=== PATIENT | male | born 1960 | race Caucasian/White ===

== ENCOUNTER 2018-02-24 05:50 | Emergency (ER) | payer MEDICAID, OTHER ==
[~2018-02-24] VITALS: Ht 185.4 cm; Wt 79.5 kg
[2018-02-24] MEDS ORDERED: CEPH500C5 PO (06:31)
[2018-02-24] MEDS ORDERED: HYDR-3965 PO (06:31)
[2018-02-24] MEDS ORDERED: ceFAZolin 1gm IM kit IM ONE (06:35)
[2018-02-24] MEDS ORDERED: HYDROcodone/acetaminophen 10/325mg tab PO ONE (06:35)
[2018-02-24] MEDS ORDERED: gentamicin 0.1% topical ointment 15gm TP SCH (06:45)
[2018-02-24 07:25] VITALS: BP 115/71
== END 2018-02-24 07:25 | disposition home or self-care (01) ==
LOC: ER 05:51
DX: L03.116 Cellulitis of left lower limb (principal); F17.200 Nicotine dependence, unspecified, uncomplicated; Z98.890 Other specified postprocedural states; Z88.2 Allergy status to sulfonamides; Z79.2 Long term (current) use of antibiotics; W57.XXXA Bitten or stung by nonvenomous insect and other nonvenomous arthropods, initial encounter; Y93.89 Activity, other specified; Y92.89 Other specified places as the place of occurrence of the external cause; Y99.8 Other external cause status
CPT/HCPCS: 87070; 87077; 87186; 96372; 99284; J0690

== ENCOUNTER 2018-02-25 12:51 | Inpatient (IN) | payer MEDICAID, OTHER ==
[~2018-02-25] VITALS: Ht 185.4 cm; Wt 75.0 kg
[~2018-02-25 12:51] MED LIST: CEPH500C5 PO; HYDR-3965 PO
[2018-02-25] MEDS ORDERED: gentamicin 40 MG/1 ML inj IV STA (13:18)
[2018-02-25] MEDS ORDERED: normal saline 1000ML IV soln IVB ONE (13:20)
[2018-02-25] MEDS ORDERED: probenecid 500mg tablet PO ONE (13:20)
[2018-02-25] MEDS ORDERED: morphine 4 MG/ML inj SYRINge IV ONE ×2 (13:20→14:35)
[2018-02-25] MEDS ORDERED: ondansetron/PF 4mg/2ml inj IV ONE (13:20)
[2018-02-25] MEDS ORDERED: LIDOcaine 1.5% w/epinephrine 1:200,000 5ml ampul IJ ONE (13:20)
[2018-02-25 13:39] LABS: BASOPHILS % (AUTO) 0 % (0-1); EOSINOPHILS # (AUTO) 0.1 X10'3 (0-0.9); EOSINOPHILS % (AUTO) 0.2 % (0-6); HEMOGLOBIN 14.2 g/dl (14.0-17.9); LYMPHOCYTES # (AUTO) 1.1 X10'3 (1.1-4.8); LYMPHOCYTES % (AUTO) 3.5 % (21-51); MEAN CORPUSCULAR HEMOGLOBIN 32.4 PG (27.0-31.0); MEAN CORPUSCULAR HGB CONC 33.9 % (33.0-36.5); MEAN CORPUSCULAR VOLUME 95.7 FL (78-98); MEAN PLATELET VOLUME 8.4 FL (7.4-10.4); MONOCYTES # (AUTO) 1.4 X10'3 (0-0.9); MONOCYTES % (AUTO) 4.4 % (2-12); NEUTROPHILS # (AUTO) 29.3 X10'3 (1.8-7.7); NEUTROPHILS % (AUTO) 91.9 % (42-75); PLATELET COUNT 282 X10'3 (140-440); RED BLOOD COUNT 4.39 X10'6 (4.70-6.10); RED CELL DISTRIBUTION WIDTH 12.9 % (11.5-14.5)
[2018-02-25] MEDS ORDERED: GENTAMICIN IV ONE (13:45)
[2018-02-25] MEDS ORDERED: NORMAL SALINE IV ONE (13:45)
[2018-02-25 13:51] LABS: WHITE BLOOD COUNT 31.9 X10'3 (4.5-11.0)
[2018-02-25 13:53] LABS: ALANINE AMINOTRANSFERASE 49 U/L (12-78); ALBUMIN 3.2 G/DL (3.4-5.0); ALBUMIN/GLOBULIN RATIO 0.9 (1.1-1.5); ALKALINE PHOSPHATASE 83 IU/L (46-116); ANION GAP 8 (8-16); ASPARTATE AMINO TRANSFERASE 30 U/L (10-37); BILIRUBIN,TOTAL 0.7 MG/DL (0.1-1.0); BLOOD UREA NITROGEN 17 MG/DL (7-18); BUN/CREATININE RATIO 15.7 (5.4-32.0); CALCIUM 8.8 MG/DL (8.5-10.1); CHLORIDE 99 MMOL/L (99-107); CREATININE 1.08 MG/DL (0.60-1.10); GLUCOSE 127 MG/DL (70-104); POTASSIUM 4.2 MMOL/L (3.5-5.1); SODIUM 135 MMOL/L (135-145); TOTAL CARBON DIOXIDE 27.8 MMOL/L (24-32); TOTAL PROTEIN 6.9 G/DL (6.4-8.2); eGFR 70 ML/MIN
[2018-02-25] MEDS ORDERED: normal saline 1000ML IV soln IV ONE (13:55)
[2018-02-25 13:59] LABS: PLATELET ESTIMATE NORMAL; TOTAL CELLS COUNTED 100
[2018-02-25] MEDS ORDERED: ampicillin/sulbac 3gm/NS 100ml 100 ML IV SCH (14:00)
[2018-02-25] MEDS ORDERED: ampicillin/sulbac 3gm/NS 100ml 100 ML IV ONE (14:00)
[2018-02-25 14:13] LABS: INR 1.1 INR; PARTIAL THROMBOPLASTIN TIME 33 SECONDS (22-32)
[2018-02-25] MEDS ORDERED: iohexol 300mg/ml 100ml inj. ONE (14:31)
[2018-02-25] MEDS ORDERED: morphine 2 MG/ML inj. syringe IV PRN (15:35)
[2018-02-25] MEDS ORDERED: magnesium Cl slow-release 64mg tablet PO PRN (15:35)
[2018-02-25] MEDS ORDERED: magnesium 4gm in 100ml NS 100 ML IV PRN (15:35)
[2018-02-25] MEDS ORDERED: ondansetron/PF 4mg/2ml inj IV PRN (15:35)
[2018-02-25] MEDS ORDERED: acetaminophen 325mg tablet PO PRN ×2 (15:35)
[2018-02-25] MEDS ORDERED: magnesium 1gm/100ml D5W IVPB 100 ML IV PRN (15:35)
[2018-02-25] MEDS ORDERED: mag hydrox/Alum hydrox/simeth 30ml oral suspension PO PRN (15:35)
[2018-02-25] MEDS ORDERED: magnesium hydroxide 30ml (MOM) UD suspension PO PRN (15:35)
[2018-02-25] MEDS ORDERED: potassium Cl 40MEQ/NS 500ml 500 ML IV PRN ×2 (15:35)
[2018-02-25] MEDS ORDERED: potassium Cl 20 mEq SR tablet PO PRN ×2 (15:35)
[2018-02-25] MEDS: morphine 2 MG/ML inj. syringe IV PRN ×2 (15:50→20:06)
[2018-02-25] MEDS ORDERED: gentamicin in saline, iso-osm 80 MG/50 ML premix IV SCH (16:00)
[2018-02-25 17:16] VITALS: BP 130/92
[2018-02-25] MEDS: oxyCODONE/APAP 5-325mg tablet PO PRN ×2 (17:52→23:53)
[2018-02-25] MEDS: potassium Cl 20mEq in NS 1,000 ML IV SCH (17:53)
[2018-02-25 18:00] VITALS: BP_SYST 108; BP_SYST 167; BP_DIAS 69; BP_DIAS 75
[2018-02-25] MEDS: ampicillin/sulbac 3gm/NS 100ml 100 ML IV SCH (20:00)
[2018-02-25 22:00] VITALS: BP 103/60
[2018-02-25] MEDS: gentamicin inj 80 MG in normal saline 100ml IV soln 100 ML IV SCH (23:53)
[2018-02-26] MEDS: potassium Cl 20mEq in NS 1,000 ML IV SCH ×3 (01:32→22:46)
[2018-02-26 02:00] VITALS: BP 104/61
[2018-02-26] MEDS: ampicillin/sulbac 3gm/NS 100ml 100 ML IV SCH ×2 (02:32→08:42)
[2018-02-26] MEDS: morphine 2 MG/ML inj. syringe IV PRN ×4 (02:39→18:03)
[2018-02-26 06:00] VITALS: BP 99/57
[2018-02-26 06:14] LABS: BASOPHILS % (AUTO) 0 % (0-1); EOSINOPHILS # (AUTO) 0.4 X10'3 (0-0.9); EOSINOPHILS % (AUTO) 1.8 % (0-6); HEMATOCRIT 33.4 % (42.0-52.0); HEMOGLOBIN 11.3 g/dl (14.0-17.9); LYMPHOCYTES # (AUTO) 1.2 X10'3 (1.1-4.8); LYMPHOCYTES % (AUTO) 6.4 % (21-51); MEAN CORPUSCULAR HEMOGLOBIN 32.6 PG (27.0-31.0); MEAN CORPUSCULAR HGB CONC 33.9 % (33.0-36.5); MEAN CORPUSCULAR VOLUME 96.2 FL (78-98); MEAN PLATELET VOLUME 8.5 FL (7.4-10.4); MONOCYTES # (AUTO) 1.2 X10'3 (0-0.9); MONOCYTES % (AUTO) 6.1 % (2-12); NEUTROPHILS # (AUTO) 16.6 X10'3 (1.8-7.7); NEUTROPHILS % (AUTO) 85.7 % (42-75); PLATELET COUNT 227 X10'3 (140-440); RED BLOOD COUNT 3.47 X10'6 (4.70-6.10); RED CELL DISTRIBUTION WIDTH 12.6 % (11.5-14.5); WHITE BLOOD COUNT 19.3 X10'3 (4.5-11.0)
[2018-02-26 06:34] LABS: ALANINE AMINOTRANSFERASE 40 U/L (12-78); ALBUMIN 2.3 G/DL (3.4-5.0); ALBUMIN/GLOBULIN RATIO 0.7 (1.1-1.5); ALKALINE PHOSPHATASE 93 IU/L (46-116); ANION GAP 8 (8-16); ASPARTATE AMINO TRANSFERASE 28 U/L (10-37); BILIRUBIN,TOTAL 0.5 MG/DL (0.1-1.0); BLOOD UREA NITROGEN 10 MG/DL (7-18); BUN/CREATININE RATIO 9.9 (5.4-32.0); CALCIUM 7.9 MG/DL (8.5-10.1); CHLORIDE 105 MMOL/L (99-107); CREATININE 1.01 MG/DL (0.60-1.10); GLUCOSE 97 MG/DL (70-104); MAGNESIUM 1.9 MG/DL (1.5-2.4); POTASSIUM 4.2 MMOL/L (3.5-5.1); SODIUM 139 MMOL/L (135-145); TOTAL CARBON DIOXIDE 26.5 MMOL/L (24-32); TOTAL PROTEIN 5.4 G/DL (6.4-8.2); eGFR 76 ML/MIN
[2018-02-26] MEDS: enoxaparin 40mg/0.4ml syringe SUBCUT SCH (07:19)
[2018-02-26] MEDS: oxyCODONE/APAP 5-325mg tablet PO PRN ×3 (07:20→19:43)
[2018-02-26] MEDS: gentamicin inj 80 MG in normal saline 100ml IV soln 100 ML IV SCH (07:21)
[2018-02-26] MEDS: K and/or MAG REPLACEMENT MC SCH (08:00)
[2018-02-26] MEDS ORDERED: NO HOME MEDS (08:19)
[2018-02-26 10:00] VITALS: BP 109/67
[2018-02-26] MEDS ORDERED: MESSAGE TO NURSING IV ONE ×2 (15:30→16:30)
[2018-02-26 22:00] VITALS: BP 108/75
[2018-02-27] MEDS: oxyCODONE/APAP 5-325mg tablet PO PRN ×4 (01:59→18:48)
[2018-02-27 05:53] LABS: BASOPHILS % (AUTO) 0.1 % (0-1); EOSINOPHILS # (AUTO) 0.3 X10'3 (0-0.9); EOSINOPHILS % (AUTO) 1.7 % (0-6); HEMATOCRIT 35.4 % (42.0-52.0); HEMOGLOBIN 11.9 g/dl (14.0-17.9); LYMPHOCYTES # (AUTO) 1.4 X10'3 (1.1-4.8); LYMPHOCYTES % (AUTO) 9.2 % (21-51); MEAN CORPUSCULAR HEMOGLOBIN 32.4 PG (27.0-31.0); MEAN CORPUSCULAR HGB CONC 33.8 % (33.0-36.5); MEAN CORPUSCULAR VOLUME 96.1 FL (78-98); MONOCYTES # (AUTO) 0.9 X10'3 (0-0.9); MONOCYTES % (AUTO) 6.3 % (2-12); NEUTROPHILS # (AUTO) 12.3 X10'3 (1.8-7.7); NEUTROPHILS % (AUTO) 82.7 % (42-75); PLATELET COUNT 249 X10'3 (140-440); RED BLOOD COUNT 3.68 X10'6 (4.70-6.10); RED CELL DISTRIBUTION WIDTH 12.9 % (11.5-14.5); WHITE BLOOD COUNT 14.9 X10'3 (4.5-11.0)
[2018-02-27 06:00] VITALS: BP 119/81
[2018-02-27 06:08] LABS: ALANINE AMINOTRANSFERASE 66 U/L (12-78); ALBUMIN 2.2 G/DL (3.4-5.0); ALBUMIN/GLOBULIN RATIO 0.6 (1.1-1.5); ALKALINE PHOSPHATASE 160 IU/L (46-116); ANION GAP 10 (8-16); ASPARTATE AMINO TRANSFERASE 48 U/L (10-37); BILIRUBIN,TOTAL 0.5 MG/DL (0.1-1.0); BLOOD UREA NITROGEN 8 MG/DL (7-18); BUN/CREATININE RATIO 8.1 (5.4-32.0); CALCIUM 8.1 MG/DL (8.5-10.1); CHLORIDE 107 MMOL/L (99-107); CREATININE 0.99 MG/DL (0.60-1.10); GLUCOSE 92 MG/DL (70-104); SODIUM 140 MMOL/L (135-145); TOTAL CARBON DIOXIDE 23.1 MMOL/L (24-32); TOTAL PROTEIN 5.6 G/DL (6.4-8.2); eGFR 78 ML/MIN
[2018-02-27] MEDS: K and/or MAG REPLACEMENT MC SCH (08:00)
[2018-02-27] MEDS: enoxaparin 40mg/0.4ml syringe SUBCUT SCH (08:31)
[2018-02-27 10:00] VITALS: BP 124/85
[2018-02-27] MEDS: potassium Cl 20mEq in NS 1,000 ML IV SCH ×2 (10:36→17:32)
[2018-02-27] MEDS ORDERED: HYDROmorphone 2mg/ml vial IV PRN (15:00)
[2018-02-27] MEDS: HYDROmorphone 1 mg/ml syringe IV PRN ×2 (15:51→21:25)
[2018-02-27 18:00] VITALS: BP 138/72
[2018-02-27] MEDS: docusate sod 100mg capsule PO SCH (21:25)
[2018-02-27] MEDS: lactobacillus rhamnosus 10,000 MMU CELLS/CAPSULE PO SCH (21:25)
[2018-02-28] MEDS: oxyCODONE/APAP 5-325mg tablet PO PRN ×4 (00:53→17:37)
[2018-02-28] MEDS ORDERED: VANCOMYCIN LEVEL IV ONE (03:30)
[2018-02-28] MEDS: potassium Cl 20mEq in NS 1,000 ML IV SCH ×2 (03:32→16:01)
[2018-02-28 03:53] LABS: BASOPHILS # (AUTO) 0.1 X10'3 (0-0.2); BASOPHILS % (AUTO) 0.5 % (0-1); EOSINOPHILS # (AUTO) 0.3 X10'3 (0-0.9); EOSINOPHILS % (AUTO) 2.5 % (0-6); HEMATOCRIT 34.7 % (42.0-52.0); HEMOGLOBIN 11.8 g/dl (14.0-17.9); LYMPHOCYTES # (AUTO) 1.6 X10'3 (1.1-4.8); LYMPHOCYTES % (AUTO) 13.9 % (21-51); MEAN CORPUSCULAR HEMOGLOBIN 32.3 PG (27.0-31.0); MEAN CORPUSCULAR HGB CONC 34.1 % (33.0-36.5); MEAN CORPUSCULAR VOLUME 94.8 FL (78-98); MEAN PLATELET VOLUME 7.9 FL (7.4-10.4); MONOCYTES # (AUTO) 0.9 X10'3 (0-0.9); MONOCYTES % (AUTO) 7.5 % (2-12); NEUTROPHILS # (AUTO) 8.8 X10'3 (1.8-7.7); NEUTROPHILS % (AUTO) 75.6 % (42-75); PLATELET COUNT 272 X10'3 (140-440); RED BLOOD COUNT 3.67 X10'6 (4.70-6.10); RED CELL DISTRIBUTION WIDTH 12.7 % (11.5-14.5); WHITE BLOOD COUNT 11.6 X10'3 (4.5-11.0)
[2018-02-28 04:03] LABS: ALANINE AMINOTRANSFERASE 89 U/L (12-78); ALBUMIN 2.2 G/DL (3.4-5.0); ALBUMIN/GLOBULIN RATIO 0.7 (1.1-1.5); ALKALINE PHOSPHATASE 185 IU/L (46-116); ANION GAP 9 (8-16); ASPARTATE AMINO TRANSFERASE 58 U/L (10-37); BILIRUBIN,TOTAL 0.4 MG/DL (0.1-1.0); BLOOD UREA NITROGEN 10 MG/DL (7-18); BUN/CREATININE RATIO 11.5 (5.4-32.0); CALCIUM 8.1 MG/DL (8.5-10.1); CHLORIDE 106 MMOL/L (99-107); CREATININE 0.87 MG/DL (0.60-1.10); GLUCOSE 95 MG/DL (70-104); POTASSIUM 3.9 MMOL/L (3.5-5.1); SODIUM 140 MMOL/L (135-145); TOTAL CARBON DIOXIDE 25.3 MMOL/L (24-32); TOTAL PROTEIN 5.5 G/DL (6.4-8.2); eGFR 90 ML/MIN
[2018-02-28 04:04] LABS: MAGNESIUM 1.9 MG/DL (1.5-2.4); VANCOMYCIN,TROUGH 12.1 UG/ML (6.0-14.0)
[2018-02-28 06:00] VITALS: BP 132/82
[2018-02-28] MEDS: K and/or MAG REPLACEMENT MC SCH (08:00)
[2018-02-28 09:30] VITALS: BP 143/89
[2018-02-28] MEDS: docusate sod 100mg capsule PO SCH ×2 (09:32→20:03)
[2018-02-28] MEDS: lactobacillus rhamnosus 10,000 MMU CELLS/CAPSULE PO SCH ×2 (09:32→20:03)
[2018-02-28] MEDS: enoxaparin 40mg/0.4ml syringe SUBCUT SCH (09:33)
[2018-02-28 14:30] VITALS: BP 131/88
[2018-02-28] MEDS: HYDROmorphone 1 mg/ml syringe IV PRN ×2 (16:00→20:03)
[2018-02-28 18:00] VITALS: BP 116/74
[2018-02-28 22:00] VITALS: BP 125/76
[2018-03-01] MEDS: HYDROmorphone 1 mg/ml syringe IV PRN (01:56)
[2018-03-01] MEDS: oxyCODONE/APAP 5-325mg tablet PO PRN ×4 (04:38→16:37)
[2018-03-01] MEDS: potassium Cl 20mEq in NS 1,000 ML IV SCH (04:42)
[2018-03-01 06:02] LABS: BASOPHILS # (AUTO) 0.1 X10'3 (0-0.2); BASOPHILS % (AUTO) 0.5 % (0-1); EOSINOPHILS # (AUTO) 0.4 X10'3 (0-0.9); EOSINOPHILS % (AUTO) 2.8 % (0-6); HEMATOCRIT 37.9 % (42.0-52.0); HEMOGLOBIN 12.9 g/dl (14.0-17.9); LYMPHOCYTES # (AUTO) 1.7 X10'3 (1.1-4.8); LYMPHOCYTES % (AUTO) 12.9 % (21-51); MEAN CORPUSCULAR HEMOGLOBIN 32.2 PG (27.0-31.0); MEAN CORPUSCULAR VOLUME 94.8 FL (78-98); MEAN PLATELET VOLUME 8.1 FL (7.4-10.4); MONOCYTES # (AUTO) 0.9 X10'3 (0-0.9); NEUTROPHILS # (AUTO) 9.9 X10'3 (1.8-7.7); NEUTROPHILS % (AUTO) 76.8 % (42-75); PLATELET COUNT 341 X10'3 (140-440); RED CELL DISTRIBUTION WIDTH 12.5 % (11.5-14.5); WHITE BLOOD COUNT 12.9 X10'3 (4.5-11.0)
[2018-03-01 06:23] LABS: ALANINE AMINOTRANSFERASE 80 U/L (12-78); ALBUMIN 2.4 G/DL (3.4-5.0); ALBUMIN/GLOBULIN RATIO 0.7 (1.1-1.5); ALKALINE PHOSPHATASE 176 IU/L (46-116); ANION GAP 10 (8-16); ASPARTATE AMINO TRANSFERASE 37 U/L (10-37); BILIRUBIN,TOTAL 0.4 MG/DL (0.1-1.0); BLOOD UREA NITROGEN 8 MG/DL (7-18); BUN/CREATININE RATIO 8.9 (5.4-32.0); CALCIUM 8.4 MG/DL (8.5-10.1); CHLORIDE 105 MMOL/L (99-107); GLUCOSE 94 MG/DL (70-104); MAGNESIUM 1.8 MG/DL (1.5-2.4); POTASSIUM 3.9 MMOL/L (3.5-5.1); SODIUM 141 MMOL/L (135-145); TOTAL CARBON DIOXIDE 25.8 MMOL/L (24-32); TOTAL PROTEIN 5.9 G/DL (6.4-8.2); eGFR 87 ML/MIN
[2018-03-01 06:59] VITALS: BP 131/79
[2018-03-01] MEDS: docusate sod 100mg capsule PO SCH ×2 (08:00→08:23)
[2018-03-01] MEDS: K and/or MAG REPLACEMENT MC SCH (08:00)
[2018-03-01] MEDS: lactobacillus rhamnosus 10,000 MMU CELLS/CAPSULE PO SCH ×2 (08:00→08:23)
[2018-03-01] MEDS: enoxaparin 40mg/0.4ml syringe SUBCUT SCH (08:25)
[2018-03-01 10:00] VITALS: BP 121/89
[2018-03-01] MEDS ORDERED: VANCOMYCIN LEVEL IV ONE (11:30)
[2018-03-01] MEDS ORDERED: HYDR-4353 PO (14:49)
[2018-03-01] MEDS ORDERED: DOXY-200 PO (14:49)
[2018-03-01] MEDS ORDERED: vancomycin/NS 1 GM ADD-VANTAGE 250 ML IV SCH (20:00)
[2018-03-02] MEDS ORDERED: VANCOMYCIN LEVEL IV ONE (19:30)
== END 2018-03-01 16:40 | disposition home or self-care (01) | DRG 720 ==
LOC: ER 12:51 → ED HOLD 15:32 → ORTHO 4S 17:05
PROVIDERS: ADMIT Internal Medicine; ATTEND Family Medicine
PROC: 0H9LXZZ Drainage of Left Lower Leg Skin, External Approach (ICD-10-PCS; principal; 2018-02-25)
DX: A41.02 Sepsis due to Methicillin resistant Staphylococcus aureus (principal); E43 Unspecified severe protein-calorie malnutrition; L03.116 Cellulitis of left lower limb; B95.62 Methicillin resistant Staphylococcus aureus infection as the cause of diseases classified elsewhere; L02.416 Cutaneous abscess of left lower limb; F17.210 Nicotine dependence, cigarettes, uncomplicated; G35 Multiple sclerosis; Z79.899 Other long term (current) drug therapy; Z88.2 Allergy status to sulfonamides; Z68.21 Body mass index [BMI] 21.0-21.9, adult
CPT/HCPCS: 10060; 36415; 71045; 73701; 80053; 80170; 80202; 83605; 83735; 84145; 85025; 85610; 85730; 87040; 87070; 87077; 87186; 93005; 93971; 96365; 96368; 96375; 96376; 99285; G0378; J0295; J1170; J1580; J1650; J2270; J2405; J3370; J3490; J7030; Q9967

== ENCOUNTER 2018-12-22 13:22 | Inpatient (IN) | payer MEDICAID, OTHER ==
[~2018-12-22] VITALS: Ht 185.4 cm; Wt 79.5 kg
[2018-12-22 14:10] LABS: BASOPHILS # (AUTO) 0.1 X10'3 (0-0.2); BASOPHILS % (AUTO) 0.7 % (0-1); EOSINOPHILS # (AUTO) 0.1 X10'3 (0-0.9); EOSINOPHILS % (AUTO) 0.9 % (0-6); HEMOGLOBIN 15.2 g/dl (14.0-17.9); LYMPHOCYTES # (AUTO) 2.2 X10'3 (1.1-4.8); LYMPHOCYTES % (AUTO) 22.4 % (21-51); MEAN CORPUSCULAR HEMOGLOBIN 32.9 PG (27.0-31.0); MEAN CORPUSCULAR HGB CONC 34.4 g/dL (33.0-36.5); MEAN CORPUSCULAR VOLUME 95.5 FL (78-98); MEAN PLATELET VOLUME 7.7 FL (7.4-10.4); MONOCYTES # (AUTO) 0.5 X10'3 (0-0.9); MONOCYTES % (AUTO) 5.5 % (2-12); NEUTROPHILS # (AUTO) 6.8 X10'3 (1.8-7.7); NEUTROPHILS % (AUTO) 70.5 % (42-75); PLATELET COUNT 261 X10'3 (140-440); RED BLOOD COUNT 4.61 X10'6 (4.70-6.10); RED CELL DISTRIBUTION WIDTH 12.5 % (11.5-14.5); WHITE BLOOD COUNT 9.7 X10'3 (4.5-11.0)
[2018-12-22 14:24] LABS: ALANINE AMINOTRANSFERASE 19 U/L (12-78); ALBUMIN 4.3 G/DL (3.4-5.0); ALBUMIN/GLOBULIN RATIO 1.3 (1.1-1.5); ALKALINE PHOSPHATASE 41 IU/L (46-116); ANION GAP 10 (8-16); ASPARTATE AMINO TRANSFERASE 12 U/L (10-37); BILIRUBIN,TOTAL 0.6 MG/DL (0.1-1.0); BLOOD UREA NITROGEN 12 MG/DL (7-18); BUN/CREATININE RATIO 10.2 (5.4-32.0); CALCIUM 9.2 MG/DL (8.5-10.1); CHLORIDE 105 MMOL/L (99-107); CREATININE 1.18 MG/DL (0.60-1.10); GLUCOSE 152 MG/DL (70-104); POTASSIUM 3.7 MMOL/L (3.5-5.1); SODIUM 141 MMOL/L (135-145); TOTAL CARBON DIOXIDE 26.2 MMOL/L (24-32); TOTAL PROTEIN 7.5 G/DL (6.4-8.2); eGFR 63 ML/MIN
--- NOTE | 2018-12-22 14:31 | NUR ---
neuro tele consult with dr. stone, [facility] relayed and [facility] performed, Dr. Stone to speak with Dr. Palacios about admit and needed diagnostic testing
[2018-12-22] MEDS ORDERED: potassium Cl 20 mEq SR tablet PO PRN ×2 (14:50)
[2018-12-22] MEDS ORDERED: magnesium 2GM in 50ml NS 50 ML IV PRN (14:50)
[2018-12-22] MEDS ORDERED: mag hydrox/Alum hydrox/simeth 30ml oral suspension PO PRN (14:50)
[2018-12-22] MEDS ORDERED: magnesium Cl slow-release 64mg tablet PO PRN (14:50)
[2018-12-22] MEDS ORDERED: potassium CL 10mEq/100ml bag 100 ML IV PRN ×2 (14:50)
[2018-12-22] MEDS ORDERED: magnesium 4gm in 100ml NS 100 ML IV PRN (14:50)
[2018-12-22] MEDS ORDERED: acetaminophen 325mg tablet PO PRN ×2 (14:50)
[2018-12-22] MEDS ORDERED: HYDROcodone/acetaminophen 5mg/325mg tablet PO PRN (14:50)
[2018-12-22] MEDS ORDERED: ondansetron/PF 4mg/2ml inj IV PRN (14:50)
[2018-12-22] MEDS: HYDROcodone/acetaminophen 10/325mg tab PO PRN ×3 (15:14→23:45)
--- NOTE | 2018-12-22 16:02 | NUR ---
pt not in room
--- NOTE | 2018-12-22 17:11 | NUR ---
PATIENT NOT IN ROOM
--- NOTE | 2018-12-22 17:31 | NUR ---
pt not in room
--- NOTE | 2018-12-22 17:44 | NUR ---
returned from [facility]
[2018-12-22] MEDS ORDERED: gadopentetate dimeglumine 5 mmol/10ml vial IV ONE ×2 (17:45→17:46)
[2018-12-22] MEDS ORDERED: NO HOME MEDS (17:49)
[2018-12-22] MEDS ORDERED: temazepam 15mg capsule PO PRN (21:00)
[2018-12-23] MEDS: K and/or MAG REPLACEMENT MC SCH (08:00)
[2018-12-23] MEDS: enoxaparin 40mg/0.4ml syringe SUBCUT SCH (08:32)
[2018-12-23] MEDS: HYDROcodone/acetaminophen 10/325mg tab PO PRN ×4 (08:45→21:46)
[2018-12-23 09:09] LABS: HEMATOCRIT 42.4 % (42.0-52.0); HEMOGLOBIN 14.2 g/dl (14.0-17.9); MEAN CORPUSCULAR HEMOGLOBIN 32.5 PG (27.0-31.0); MEAN CORPUSCULAR HGB CONC 33.5 g/dL (33.0-36.5); MEAN PLATELET VOLUME 8.7 FL (7.4-10.4); PLATELET COUNT 224 X10'3 (140-440); RED BLOOD COUNT 4.37 X10'6 (4.70-6.10); RED CELL DISTRIBUTION WIDTH 12.4 % (11.5-14.5)
[2018-12-23 09:11] LABS: ALBUMIN 3.6 G/DL (3.4-5.0); ANION GAP 9 (8-16); BLOOD UREA NITROGEN 11 MG/DL (7-18); CALCIUM 8.5 MG/DL (8.5-10.1); CHLORIDE 107 MMOL/L (99-107); CREATININE 0.92 MG/DL (0.60-1.10); GLUCOSE 86 MG/DL (70-104); POTASSIUM 4.3 MMOL/L (3.5-5.1); SODIUM 142 MMOL/L (135-145); TOTAL CARBON DIOXIDE 25.7 MMOL/L (24-32); eGFR 84 ML/MIN
[2018-12-23 10:00] VITALS: BP 159/101
[2018-12-23] MEDS: methylPREDNISolone sod succ 125mg/2ml vial IV SCH ×2 (14:44→20:19)
--- NOTE | 2018-12-23 18:35 | NUR ---
Patient in room [facility]TH[facility] 4015. I have received report from ARIANA Santillan and had the opportunity to ask questions and assume patient care. Addendum: 12/23/18 at 1835 by Ludmila Hodge RN Amended: Links added.
[2018-12-23 22:00] VITALS: BP 129/78
[2018-12-24] MEDS: methylPREDNISolone sod succ 125mg/2ml vial IV SCH ×4 (01:52→19:12)
[2018-12-24] MEDS: HYDROcodone/acetaminophen 10/325mg tab PO PRN ×4 (05:46→19:11)
[2018-12-24 06:00] VITALS: BP 132/79
--- NOTE | 2018-12-24 06:21 | NUR ---
Problems reprioritized. Patient report given, questions answered & plan of care reviewed with ARIANA Anderson. Addendum: 12/24/18 at 0622 by Ludmila Hodge RN Amended: Links added.
[2018-12-24 06:23] LABS: HEMATOCRIT 46.3 % (42.0-52.0); HEMOGLOBIN 15.9 g/dl (14.0-17.9); MEAN CORPUSCULAR HEMOGLOBIN 32.8 PG (27.0-31.0); MEAN CORPUSCULAR HGB CONC 34.3 g/dL (33.0-36.5); MEAN CORPUSCULAR VOLUME 95.5 FL (78-98); MEAN PLATELET VOLUME 8.3 FL (7.4-10.4); PLATELET COUNT 252 X10'3 (140-440); RED BLOOD COUNT 4.85 X10'6 (4.70-6.10); RED CELL DISTRIBUTION WIDTH 12.5 % (11.5-14.5); WHITE BLOOD COUNT 17.8 X10'3 (4.5-11.0)
[2018-12-24 06:47] LABS: ALBUMIN 3.9 G/DL (3.4-5.0); ANION GAP 10 (8-16); BLOOD UREA NITROGEN 16 MG/DL (7-18); BUN/CREATININE RATIO 16.7 (5.4-32.0); CALCIUM 9.2 MG/DL (8.5-10.1); CHLORIDE 105 MMOL/L (99-107); CREATININE 0.96 MG/DL (0.60-1.10); GLUCOSE 151 MG/DL (70-104); MAGNESIUM 1.9 MG/DL (1.5-2.4); SODIUM 139 MMOL/L (135-145); TOTAL CARBON DIOXIDE 24.1 MMOL/L (24-32); eGFR 80 ML/MIN
[2018-12-24] MEDS: K and/or MAG REPLACEMENT MC SCH (08:00)
[2018-12-24] MEDS: enoxaparin 40mg/0.4ml syringe SUBCUT SCH (08:26)
[2018-12-24] MEDS: magnesium hydroxide 30ml (MOM) UD suspension PO PRN (08:28)
[2018-12-24 08:54] LABS: HIV ANTIBODY 1&2 RAPID NON-REACTIVE (Neg)
[2018-12-24] MEDS ORDERED: gadopentetate dimeglumine 7.5 MMOL/15 ML syringe ONE (09:25)
[2018-12-24 10:00] VITALS: BP 122/81
--- NOTE | 2018-12-24 18:30 | NUR ---
Patient in room [facility]TH[facility] 4015. I have received report from Yuli LANE and had the opportunity to ask questions and assume patient care.
[2018-12-24 21:00] VITALS: BP 100/68
[2018-12-25] MEDS: methylPREDNISolone sod succ 125mg/2ml vial IV SCH ×3 (02:35→14:01)
[2018-12-25] MEDS: HYDROcodone/acetaminophen 10/325mg tab PO PRN ×4 (02:40→16:20)
[2018-12-25 05:13] LABS: RPR Non Reactive (Non Reactive)
[2018-12-25 06:27] LABS: HEMATOCRIT 42.5 % (42.0-52.0); HEMOGLOBIN 14.3 g/dl (14.0-17.9); MEAN CORPUSCULAR HEMOGLOBIN 32.4 PG (27.0-31.0); MEAN CORPUSCULAR HGB CONC 33.7 g/dL (33.0-36.5); MEAN CORPUSCULAR VOLUME 96.2 FL (78-98); MEAN PLATELET VOLUME 8.6 FL (7.4-10.4); PLATELET COUNT 220 X10'3 (140-440); RED BLOOD COUNT 4.41 X10'6 (4.70-6.10); RED CELL DISTRIBUTION WIDTH 12.3 % (11.5-14.5)
[2018-12-25 06:32] LABS: WHITE BLOOD COUNT 31.7 X10'3 (4.5-11.0)
[2018-12-25 06:35] LABS: ALBUMIN 3.6 G/DL (3.4-5.0); ANION GAP 8 (8-16); BLOOD UREA NITROGEN 21 MG/DL (7-18); CALCIUM 8.8 MG/DL (8.5-10.1); CHLORIDE 106 MMOL/L (99-107); GLUCOSE 147 MG/DL (70-104); MAGNESIUM 2.1 MG/DL (1.5-2.4); POTASSIUM 4.2 MMOL/L (3.5-5.1); SODIUM 139 MMOL/L (135-145); eGFR 77 ML/MIN
--- NOTE | 2018-12-25 06:35 | NUR ---
Problems reprioritized. Patient report given, questions answered & plan of care reviewed with Anushka LANE.
[2018-12-25 06:57] VITALS: BP 115/74
[2018-12-25] MEDS: enoxaparin 40mg/0.4ml syringe SUBCUT SCH (07:33)
[2018-12-25] MEDS: K and/or MAG REPLACEMENT MC SCH (07:33)
[2018-12-25] MEDS: magnesium hydroxide 30ml (MOM) UD suspension PO PRN (07:35)
[2018-12-25 08:11] LABS: CARCINOEMBRYONIC ANTIGEN 1.7 ng/mL (0.0-4.7)
[2018-12-25 11:15] VITALS: BP 113/70
[2018-12-25 11:23] LABS: ANTINUCLEAR ANTIBODIES Negative (Negative)
[2018-12-25] MEDS ORDERED: methylPREDNISolone SOD SUCC 1000 MG in NORMAL SALINE 100ml IV ONE (15:45)
[2018-12-25 16:14] LABS: BASOPHILS % (AUTO) 0 % (0-1); EOSINOPHILS % (AUTO) 0 % (0-6); HEMATOCRIT 43.4 % (42.0-52.0); HEMOGLOBIN 14.5 g/dl (14.0-17.9); LYMPHOCYTES # (AUTO) 0.9 X10'3 (1.1-4.8); LYMPHOCYTES % (AUTO) 2.5 % (21-51); MEAN CORPUSCULAR HEMOGLOBIN 32.2 PG (27.0-31.0); MEAN CORPUSCULAR HGB CONC 33.4 g/dL (33.0-36.5); MEAN CORPUSCULAR VOLUME 96.4 FL (78-98); MEAN PLATELET VOLUME 9.2 FL (7.4-10.4); MONOCYTES # (AUTO) 0.6 X10'3 (0-0.9); MONOCYTES % (AUTO) 1.7 % (2-12); NEUTROPHILS # (AUTO) 33.1 X10'3 (1.8-7.7); NEUTROPHILS % (AUTO) 95.8 % (42-75); PLATELET COUNT 231 X10'3 (140-440); RED BLOOD COUNT 4.51 X10'6 (4.70-6.10); RED CELL DISTRIBUTION WIDTH 12.5 % (11.5-14.5)
[2018-12-25 16:23] LABS: WHITE BLOOD COUNT 34.6 X10'3 (4.5-11.0)
[2018-12-25 16:41] LABS: PLATELET ESTIMATE NORMAL; TOTAL CELLS COUNTED 100
== END 2018-12-25 17:44 | disposition home or self-care (01) | DRG 60 ==
LOC: ER 13:22 → ORTHO 4S 12-23 06:56
PROVIDERS: ADMIT Family Medicine; ATTEND Family Medicine
PROC: BR37YZZ Magnetic Resonance Imaging (MRI) of Thoracic Spine using Other Contrast (ICD-10-PCS; principal; 2018-12-22)
PROC: BW38YZZ Magnetic Resonance Imaging (MRI) of Head using Other Contrast (ICD-10-PCS; 2018-12-22)
PROC: BR30YZZ Magnetic Resonance Imaging (MRI) of Cervical Spine using Other Contrast (ICD-10-PCS; 2018-12-22)
DX: G35 Multiple sclerosis (principal); F17.210 Nicotine dependence, cigarettes, uncomplicated; Z86.14 Personal history of Methicillin resistant Staphylococcus aureus infection; Z88.5 Allergy status to narcotic agent; Z88.2 Allergy status to sulfonamides; Z71.6 Tobacco abuse counseling
CPT/HCPCS: 36415; 70553; 72147; 72156; 72158; 80048; 80053; 82378; 82607; 83735; 84145; 84443; 85025; 85027; 85651; 86038; 86592; 86703; 87081; 96372; 99285; A9579; G0378; J1650; J2930